=== PATIENT | female | born 1930 | race Caucasian/White ===

== ENCOUNTER 2019-02-06 09:34 | Emergency (ER) | payer OTHER, MEDICARE ==
[2019-02-06 09:40] VITALS: BMI 25.7
[2019-02-06] MEDS ORDERED: ACETAMINOPHEN 1000 MG/100 ML VIAL (NON FORMULARY) IVPB ONE (10:08)
--- NOTE | 2019-02-06 10:13 | PDOC ---
History of Present Illness - General History Source: Patient, Family <Nikky SmithMichele - Last Filed: 02/06/19 15:47> <Shahnaz Francois - Last Filed: 02/06/19 16:17> - General Chief Complaint: Pain Stated Complaint: HIP PAIN Time Seen by Provider: 02/06/19 10:00 Past History - Past Medical History CVA: No (TIA) COPD: No Diabetes: Yes HTN: Yes Hypercholesterolemia: Yes Thyroid Disease: Yes - Surgical History Abdominal Surgery: (TUMOR REMOVED FROM INTESTINE) Appendectomy: Yes GI Surgery: Yes (PARTIAL COLECTOMY) - Immunization History Immunization Up to Date: Yes - Suicide/Smoking/Psychosocial Hx Smoking History: Never smoked Have you smoked in the past 12 months: No Information on smoking cessation initiated: No Hx Alcohol Use: No Drug/Substance Use Hx: No Substance Use Type: None Hx Substance Use Treatment: No <Marilyn Smith - Last Filed: 02/06/19 15:47> <Shahnaz Francois - Last Filed: 02/06/19 16:17> - Past Medical History Allergies/Adverse Reactions: Allergies Allergy/AdvReac Type Severity Reaction Status Date / Time No Known Allergies Allergy Verified 02/06/19 09:37 Home Medications: Ambulatory Orders Acetaminophen [Tylenol .Extra-Strength -] 500 mg PO DAILY PRN 12/10/15 Diazepam [Valium] 2 mg PO BID 12/10/15 Losartan Potassium 100 mg PO DAILY 12/10/15 Metoprolol Succinate [Toprol XL -] 50 mg PO DAILY 12/10/15 Propylene Glycol/Peg 400/Pf [Systane 0.3-0.4% Eye Drops] 1 each OP DAILY Simvastatin [Zocor -] 20 mg PO HS 12/10/15 Amlodipine Besylate [Norvasc -] 5 mg PO DAILY tablet 12/14/15 Carbidopa/Levodopa 10/100 [Sinemet 10/100 -] 1 each PO BID tablet 12/14/15 Sennosides [Senna -] 2 tab PO HS PRN #0 tablet 12/14/15 metFORMIN HCL [Metformin ER Osmotic] 500 mg PO DAILY #0 12/14/15 Acetaminophen [Tylenol -] 1,000 mg PO Q6H #30 tablet 02/06/19 Acetaminophen [Tylenol -] 1,000 mg PO Q6H #30 tablet 02/06/19 Review of Systems - Review of Systems Constitutional: No: Chills, Fever ABD/GI: No: Constipated, Diarrhea, Nausea, Vomiting : No: Dysuria, Flank Pain Musculoskeletal: Yes: Joint Pain. No: Back Pain, Joint Swelling <FrenchMarilyn - Last Filed: 02/06/19 15:47> *Physical Exam - Vital Signs Last Vital Signs Temp Pulse Resp BP Pulse Ox 97.8 F 83 16 140/40 L 99 02/06/19 09:37 02/06/19 09:37 02/06/19 09:37 02/06/19 09:37 02/06/19 09:37 - Physical Exam General Appearance: Yes: Appropriately Dressed. No: Apparent Distress HEENT: positive: Normal Voice Neck: positive: Supple Respiratory/Chest: positive: Lungs Clear, Normal Breath Sounds. negative: Respiratory Distress Cardiovascular: positive: Regular Rate, S1, S2 Gastrointestinal/Abdominal: positive: Normal Bowel Sounds, Tender (poorly localised ttp to R lower abd), Soft. negative: Pulsatile Mass, Distended, Guarding, Rebound Musculoskeletal: negative: CVA Tenderness Extremity: positive: Normal Inspection, Other (1+ edema w/ scattered areas of erythema throughout b/l LE, pedal pulses intact, no LE deformity, no ttp to hips , reports pain to R hip w/ ROM). negative: Swelling Integumentary: positive: Dry, Warm Neurologic: positive: Fully Oriented, Alert, Normal Mood/Affect <FrenchMarilyn - Last Filed: 02/06/19 15:47> - Vital Signs Last Vital Signs Temp Pulse Resp BP Pulse Ox 97.8 F 83 16 140/40 L 99 02/06/19 09:37 02/06/19 09:37 02/06/19 09:37 02/06/19 09:37 02/06/19 09:37 <Shahnaz Francois - Last Filed: 02/06/19 16:17> ED Treatment Course - LABORATORY CBC & Chemistry Diagram: 02/06/19 10:30 02/06/19 10:30 - RADIOLOGY Radiology Studies Ordered: Category Date Time Status HIP & PELVIS-LEFT [RAD] Stat Radiology 02/06/19 10:08 Ordered HIP & PELVIS-RIGHT [RAD] Stat Radiology 02/06/19 10:08 Ordered <Marilyn Smith - Last Filed: 02/06/19 15:47> - LABORATORY CBC & Chemistry Diagram: 02/06/19 10:30 02/06/19 10:30 - ADDITIONAL ORDERS Additional order review: Laboratory Results 02/06/19 02/06/19 10:30 10:30 Sodium 138 Potassium 3.9 Chloride 105 Carbon Dioxide 26 Anion Gap 7 L BUN 20 H Creatinine 0.9 Creat Clearance w eGFR 58.95 Random Glucose 130 H Calcium 9.2 Total Bilirubin 0.5 AST 29 ALT 20 Alkaline Phosphatase 92 Total Protein 7.5 Albumin 3.7 Lipase 139 Urine Color Yellow Urine Appearance Clear Urine pH 5.5 Ur Specific [place] 1.020 Urine Protein Negative Urine Glucose (UA) Negative Urine Ketones Trace Urine Blood Negative Urine Nitrite Negative Urine Bilirubin 1+ H Urine Urobilinogen 1.0 Ur Leukocyte Esterase Negative 02/06/19 10:30 RBC 3.58 L MCV 98.6 H MCHC 33.9 RDW 15.2 MPV 8.5 Neutrophils % 66.7 Lymphocytes % 16.3 D Monocytes % 16.3 H D Eosinophils % 0.3 D Basophils % 0.4 - Medications Given in the ED: ED Medications Discontinued Medications Generic Name Dose Route Start Last Admin Trade Name Janq PRN Reason Stop Dose Admin Acetaminophen 1,000 mg 02/06/19 10:08 02/06/19 10:37 Ofirmev Injection - IVPB 02/06/19 10:09 1,000 mg ONCE ONE Administration <Shahnaz Francois - Last Filed: 02/06/19 16:17> Medical Decision Making - Medical Decision Making 02/06/19 10:08 88-year-old female, history of HTN, NIDDM, essential tremor, s/p L THR 3 years ago, brought in by daughter for persistent R hip pain. As per daughter, for the past several weeks pt has been complaining of pain to her R hip, but continues to be able to emulate with her walker. No recent trauma. No other complaints at this time. Of note, daughter states since patient's L hip replacement 3 years ago, pt has had a fear of falling so mostly lies in her recliner at home. See exam R hip vs R sided abd pain Able to bear weight but painful No recent trauma -pain control -XR -labs r/o other source -dispo pending 02/06/19 10:13 02/06/19 12:54 Labs/ua/xr unremarkable. Pt reports feeling sig better w/ IV tylenol. B/l US r/ o dvt pending given immobility at home. Will d/w dispo w/ Dr Casey 02/06/19 15:[address] Casey who states if ultrasound negative for DVT, that patient can be discharged to follow-up with her orthopedics 02/06/19 15:46 US neg for dvt. Stable for dc in care of family, to f/u with her orthopedist next week <Marilyn Smith - Last Filed: 02/06/19 15:47> *DC/Admit/Observation/Transfer <Marilyn Smith - Last Filed: 02/06/19 15:47> - Attestations Physician Attestion: I reviewed the case with the mid-level practitioner and agree with the mid- level practitioner's assessment, diagnosis and disposition. <Shahnaz Francois - Last Filed: 02/06/19 16:17> Diagnosis at time of Disposition: Right hip pain - Discharge Dispostion Disposition: HOME Condition at time of disposition: Improved - Prescriptions Prescriptions: Acetaminophen [Tylenol -] 1,000 mg PO Q6H #30 tablet Acetaminophen [Tylenol -] 1,000 mg PO Q6H #30 tablet - Referrals Referrals: Blake Casey MD [Primary Care Provider] - - Patient Instructions Printed Discharge Instructions: DI for Hip Pain Additional Instructions: Your labs, XR and US were negative today Take tylenol for pain as needed Please follow up with your orthopedist next week - Post Discharge Activity
[2019-02-06] MEDS ORDERED: ACETAMINOPHEN INJECTION 100 ML IVPB ONE (10:36)
[2019-02-06 10:42] LABS: BASO % 0.4 % (0-2.0); EOS % 0.3 % (0-4.5); HEMATOCRIT 35.3 % (32.4-45.2); HEMOGLOBIN 11.9 GM/dL (10.7-15.3); LYMPH % 16.3 % (8-40); MCH 33.4 pg (25.7-33.7); MCHC 33.9 g/dl (32.0-36.0); MEAN CELL VOLUME 98.6 fl (80-96); MEAN PLT VOLUME 8.5 fl (7.5-11.1); MONO % 16.3 % (3.8-10.2); NEUT % 66.7 % (42.8-82.8); PLATELET COUNT 218 K/MM3 (134-434); RBC 3.58 M/mm3 (3.60-5.2); RDW 15.2 % (11.6-15.6); WHITE BLOOD COUNT 7.4 K/mm3 (4.0-10.0)
[2019-02-06 11:11] LABS: PH,URINE 5.5 (5.0-8.0); URINE APPEARANCE Clear; URINE BILIRUBIN 1+ (NEGATIVE); URINE COLOR Yellow; URINE GLUCOSE (UA) Negative (NEGATIVE); URINE KETONE Trace (NEGATIVE); URINE LEUK ESTERASE Negative (NEGATIVE); URINE NITRITE Negative (NEGATIVE); URINE PROTEIN Negative (NEGATIVE)
[2019-02-06 11:16] LABS: ALBUMIN 3.7 g/dl (3.4-5.0); ALK PHOS 92 U/L (45-117); ANION GAP 7 MMOL/L (8-16); BILIRUBIN,TOTAL 0.5 mg/dL (0.2-1); BLOOD UREA NITROGEN 20 mg/dL (7-18); CALCIUM 9.2 mg/dL (8.5-10.1); CHLORIDE 105 mmol/L (98-107); CO2 26 mmol/L (21-32); CREATININE 0.9 mg/dL (0.55-1.3); GLUCOSE,RANDOM 130 mg/dL (74-106); LIPASE 139 U/L (73-393); POTASSIUM 3.9 mmol/L (3.5-5.1); SGOT/AST 29 U/L (15-37); SGPT/ALT 20 U/L (13-61); SODIUM 138 mmol/L (136-145); TOT PROT 7.5 g/dl (6.4-8.2)
[2019-02-06 12:45] LABS: ANISOCYTOSIS 0; MACROCYTOSIS 0; PLATELET ESTIMATE NORMAL
[2019-02-06 16:42] VITALS: BP 129/57; PULSE 75; TEMP 98.9
== END 2019-02-06 16:19 | disposition home or self-care (01) ==
LOC: JER 09:34
PROC: 3E033NZ Introduction of Analgesics, Hypnotics, Sedatives into Peripheral Vein, Percutaneous Approach (ICD-10-PCS; principal; 2019-02-06)
DX: M25.551 Pain in right hip (principal); I10 Essential (primary) hypertension; E11.9 Type 2 diabetes mellitus without complications; Z79.84 Long term (current) use of oral hypoglycemic drugs; Z96.642 Presence of left artificial hip joint
CPT/HCPCS: 36415; 73523-TC-FY; 80053; 81003; 83690; 85025; 87086; 93970-TC; 96374; 99284-25; J0131